=== PATIENT | male | born 1995 | race American Indian/Alaskan Native ===

== ENCOUNTER 2021-01-02 15:13 | Emergency (ER) | payer SELFPAY ==
[2021-01-02 17:35] VITALS: BP 127/68
--- NOTE | 2021-01-02 17:40 | Emergency Department Report ---
Chief Complaint: Urogenital-Male Stated Complaint: STD - HPI History of Present Illness: 25-year-old -[place] male presents to the emergency room requesting STD evaluation. Patient reports unprotected intercourse and having penile discharge. Patient denies any testicular pain no testicular swelling no abdominal pain or back pain. Patient denies any fever or chills. - Exam Vital Signs: Vital Signs 01/02/21 17:34 Temperature 98.1 F Pulse Rate 57 L Respiratory 17 Rate Blood Pressure 127/68 [Right] O2 Sat by Pulse 100 Oximetry Physical Exam: Patient is alert and oriented nontoxic in appearance No acute respiratory distress Heart rate is within normal limits Patient is amatory without difficulties MSE screening note: Focused history and physical exam performed. Due to findings the following was ordered: 25-year-old -[place] male presents to the emergency room requesting STD evaluation. Patient reports unprotected intercourse and having penile di scharge. Patient denies any testicular pain no testicular swelling no abdominal pain or back pain. Patient denies any fever or chills. Referral to health department or urgent care. ED Disposition for MSE Disposition: 01 HOME / SELF CARE / HOMELESS Is pt being admited?: No Does the pt Need Aspirin: No Condition: Stable Instructions: Safe Sex Additional Instructions: Recommend to follow-up at her urgent care or health department for full STD evaluation. Referrals: [facility] [Outside] - 3-5 Days [facility] [Outside] - 3-5 Days Time of Disposition: 17:40
== END 2021-01-02 17:44 | disposition home or self-care (01) ==
LOC: ED 15:13
DX: R36.9 Urethral discharge, unspecified (principal)
CPT/HCPCS: 99281